=== PATIENT | female | born 1945 | race Caucasian/White ===

== ENCOUNTER 2016-10-03 18:30 | Inpatient (IN) | payer MEDICARE, OTHER ==
[~2016-10-03] VITALS: Ht 157.5 cm; Wt 77.0 kg
[2016-10-03 18:30] VITALS: BP_SYST 176; BP_SYST 177; BP_SYST 194; BP_DIAS 78; BP_DIAS 80; BP_DIAS 83; RESP 16
[~2016-10-03 18:30] MED LIST: BACT800T5 PO; CITA20 PO; HYDR-3133 PO; PANT20 PO; PRAV20TA67 PO; TOPR50TA PO; ZYRT10TA12 PO
[2016-10-03 18:38] VITALS: BP 193/74; PULSE 65; RESP 20; O2SAT 99
[2016-10-03] MEDS ORDERED: MECLIZINE HCL 25 MG TAB PO ONE (19:00)
--- NOTE | 2016-10-03 19:17 | RADRPT ---
EXAM DATE/TIME: 10/03/2016 19:07 [facility] COMPARISON: No previous studies available for comparison. INDICATIONS : Dizziness. RADIATION DOSE: 34.55 CTDIvol (mGy) MEDICAL HISTORY : Hypertension. Cardiovascular disease Gastroesophageal reflux disease. SURGICAL HISTORY : None. ENCOUNTER: Initial ACUITY: 1 day PAIN SCALE: 0/10 LOCATION: cranial TECHNIQUE: Multiple contiguous axial images were obtained of the head. Using automated exposure control and adj ustment of the mA and/or kV according to patient size, radiation dose was kept as low as reasonably a chievable to obtain optimal diagnostic quality images. FINDINGS: CEREBRUM: The ventricles are normal for age. No evidence of midline shift, mass lesion, hemorrhage or acute in farction. No extra-axial fluid collections are seen. POSTERIOR FOSSA: The cerebellum and brainstem are intact. The 4th ventricle is midline. The cerebellopontine angle i s unremarkable. EXTRACRANIAL: The visualized portion of the orbits is intact. SKULL: The calvaria is intact. No evidence of skull fracture. CONCLUSION: No acute disease. Eliseo Flood MD FACR on October 03, 2016 at 19:15 Board Certified Radiologist. This report was verified electronically.
--- NOTE | 2016-10-03 19:42 | PD ---
HPI Chief Complaint: Dizziness Time Seen by Provider: 19:35 Travel History International Travel<30 days: No Contact w/Intl Traveler<30days: No Traveled to known affect area: No History of Present Illness HPI 71-year-old female that presents to the ED for evaluation of dizziness. Patient reports that she's been feeling dizzy since yesterday. Per patient earlier this week she was seen by her doctor and given a prescription for prednisone and albuterol inhaler for which she has taken for an asthma exacerbation per patient. She is unsure if she is ever taken the prednisone before but she has had the albuterol before. She states that she stopped taking the medications on Tuesday as she felt somewhat dizzy and she was scared of the side effects. Per patient she developed a severe episode of dizziness yesterday. Per patient she was doing is sitting reading a book and she felt very dizzy. Per patient the room was spinning. She denies any headache or lightheadedness. She denies any chest pain or shortness of breath. No numbness , tilling, weakness. No abdominal pain. No urinary or bowel movement issues. Per patient the pain she tells me is that she has a cough and runny nose which she's had since Tuesday but the patient seems to be improving. Per patient and the dizziness from yesterday did improve after she laid down. Per patient her checked her blood pressure any was high but he came down on its own within 2 hours. Per patient she didn't think much of it and she again had another episode or more slightly at night when she had to go urinate. Today she had a couple of episodes that were very small again when she was trying to ambulate in her house. She had a last one about an hour before coming which was more severe and closer in magnitude to the one that happened yesterday. Patient denies any nausea or vomiting. No blurry vision. Per patient she feels like the room spinning. She denies any back or neck pain. She has allergies to aspirin, erythromycin and penicillin. Denies any diarrhea. No history of heart disease or CVA on herself. 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) Cancer: No Cardiovascular Problems: Yes High Cholesterol: Yes Chest Pain: No Congestive Heart Failure: No Diminished Hearing: No Diverticulitis: Yes Endocrine: No Gastrointestinal Disorders: Yes (gi bleed) GERD: Yes Genitourinary: No Headaches: Yes Hiatal Hernia: Yes Hypertension: Yes Immune Disorder: No Implanted Vascular Access Dvce: Yes Kidney Stones: No Musculoskeletal: Yes Neurologic: No Psychiatric: No Reproductive: No Respiratory: No Immunizations Current: Yes Ulcer: No Dilation and Curettage (D&C): Yes Past Surgical History Abdominal Surgery: Yes (bowel resection ) Body Medical Devices: [employer] FOR ENDOSCOPY - 1 WEEK AGO Cardiac Surgery: No Ear Surgery: No Endocrine Surgery: No Eye Surgery: No Genitourinary Surgery: No Gynecologic Surgery: No Neurologic Surgery: No Oral Surgery: No Thoracic Surgery: No Other Surgery: Yes (CARPEL TUNNEL) Social History Alcohol Use: Yes (RARELY) Tobacco Use: No Substance Use: No Allergies-Medications (Allergen,Severity, Reaction): Coded Allergies: Prednisone (Verified Allergy, Severe, 10/26/14) Aspirin (Verified Allergy, Unknown, 10/26/14) Erythromycin (Verified Allergy, Unknown, 10/26/14) Reported Meds & Prescriptions Reported Meds & Active Scripts Active Bactrim DS (Sulfamethoxazole-Trimethoprim DS) 1 Tab Tab 1 Tab PO BID Reported Protonix (Pantoprazole Sodium) 20 Mg Tabdr 20 Mg PO BIDPC Pravachol (Pravastatin Sodium) 20 Mg Tab 20 Mg PO HS Zyrtec (Cetirizine HCl) 10 Mg Tab 10 Mg PO DAILYPRN Celexa 20 Mg Tab (Citalopram Hydrobromide) 20 Mg Tab 20 Mg PO DAILY Toprol Xl (Metoprolol Succinate) 50 Mg Tabcr 50 Mg PO DAILY Hydroxyzine Hcl (Hydroxyzine HCl) 25 Mg Tab 25 Mg PO QIDPRN Review of Systems Except as stated in HPI: all other systems reviewed are Neg Physical Exam Narrative GENERAL: SKIN: Warm and dry. HEAD: Atraumatic. Normocephalic. EYES: Pupils equal and round 4 mm reactive to light and accommodation. No scleral icterus. No injection or drainage. ENT: No nasal bleeding or discharge. Mucous membranes pink and moist. The tongue is midline. No Uvula deviation. NECK: Trachea midline. No JVD. CARDIOVASCULAR: Regular rate and rhythm. No murmurs, S3, S4. RESPIRATORY: No accessory muscle use. Clear to auscultation. Breath sounds equal bilaterally. GASTROINTESTINAL: Abdomen soft, non-tender, nondistended. Hepatic and splenic margins not palpable. MUSCULOSKELETAL: Extremities without clubbing, cyanosis, or edema. No obvious deformities. Full range of motion of the upper and lower extremities bilaterally. 2+ pulses bilaterally. NEUROLOGICAL: Awake and alert. No obvious cranial nerve deficits. Motor grossly within normal limits. Five out of 5 muscle strength in the arms and legs. Normal speech. PSYCHIATRIC: Appropriate mood and affect; insight and judgment normal. Data Data Last Documented VS Vital Signs Date Time Temp Pulse Resp B/P Pulse Ox O2 Delivery O2 Flow Rate FiO2 10/03/16 21:00 66 15 142/68 98 Room Air Orders Electrocardiogram (10/03/16 18:59) Basic Metabolic Panel (Bmp) (10/03/16 18:59) Complete Blood Count With Diff (10/03/16 18:59) Magnesium (Mg) (10/03/16 18:59) Ckmb (Isoenzyme) Profile (10/03/16 18:59) Troponin I (10/03/16 18:59) Act Partial Throm Time (Ptt) (10/03/16 18:59) Prothrombin Time / Inr (Pt) (10/03/16 18:59) Urinalysis - C+S If Indicated (10/03/16 18:59) Chest, Single Ap (10/03/16 18:59) Ct Brain W/O Iv Contrast(Rout) (10/03/16 18:59) Ecg Monitoring (10/03/16 18:59) Iv Access Insert/Monitor (10/03/16 18:59) Oximetry (10/03/16 18:59) Meclizine (Antivert) (10/03/16 19:00) Orthostatic Vital Signs (10/03/16 18:59) Admit Order (Ed Use Only) (10/03/16 21:27) Labs Laboratory Tests Test 10/03/16 10/03/16 18:40 19:55 White Blood Count 8.3 TH/MM3 Red Blood Count 4.77 MIL/MM3 Hemoglobin 13.4 GM/DL Hematocrit 39.8 % Mean Corpuscular Volume 83.5 FL Mean Corpuscular Hemoglobin 28.2 PG Mean Corpuscular Hemoglobin 33.7 % Concent Red Cell Distribution Width 13.5 % Platelet Count 364 TH/MM3 Mean Platelet Volume 8.1 FL Neutrophils (%) (Auto) 61.8 % Lymphocytes (%) (Auto) 27.4 % Monocytes (%) (Auto) 7.5 % Eosinophils (%) (Auto) 2.5 % Basophils (%) (Auto) 0.8 % Neutrophils # (Auto) 5.1 TH/MM3 Lymphocytes # (Auto) 2.3 TH/MM3 Monocytes # (Auto) 0.6 TH/MM3 Eosinophils # (Auto) 0.2 TH/MM3 Basophils # (Auto) 0.1 TH/MM3 CBC Comment DIFF FINAL Differential Comment Prothrombin Time 10.7 SEC Prothromb Time International 1.0 RATIO Ratio Activated Partial 24.4 SEC Thromboplast Time Sodium Level 139 MEQ/L Potassium Level 3.9 MEQ/L Chloride Level 102 MEQ/L Carbon Dioxide Level 27.7 MEQ/L Anion Gap 9 MEQ/L Blood Urea Nitrogen 17 MG/DL Creatinine 1.07 MG/DL Estimat Glomerular Filtration 51 ML/MIN Rate Random Glucose 159 MG/DL Calcium Level 8.6 MG/DL Magnesium Level 2.3 MG/DL Total Creatine Kinase 49 U/L Troponin I 0.02 NG/ML Urine Color YELLOW Urine Turbidity CLEAR Urine pH 6.5 Urine Specific [place] 1.015 Urine Protein NEG mg/dL Urine Glucose (UA) NEG mg/dL Urine Ketones NEG mg/dL Urine Occult Blood NEG Urine Nitrite NEG Urine Bilirubin NEG Urine Urobilinogen LESS THAN 2.0 MG/DL Urine Leukocyte Esterase NEG Urine RBC 1 /hpf Urine WBC 1 /hpf Urine Squamous Epithelial 2 /hpf Cells Urine Bacteria RARE /hpf Urine Hyaline Casts 1 /lpf Urine Mucus FEW /lpf Microscopic Urinalysis Comment CULT NOT INDICATED MDM Medical Decision Making Medical Screen Exam Complete: Yes Emergency Medical Condition: Yes Medical Record Reviewed: Yes Interpretation(s) EKG shows sinus rhythm with no sign of ischemia or arrhythmia rhythm by me and attending. CBC & BMP Diagram 10/03/16 18:[address] 10/03/161858 Signed Impressions: Service Date/Time: Monday, October 03, 2016 19:07 - CONCLUSION: No acute disease. Eliseo Flood MD FACR Chest X-Ray 10/03/[id number] Signed Impressions: Service Date/Time: Monday, October 03, 2016 19:13 - CONCLUSION: No acute disease. Eliseo Flood MD FACR Troponin and CK-MB negative. Differential Diagnosis Dizziness versus near syncope versus syncope versus CVA versus ACS versus Electrolyte abnormality versus orthostatic hypotension Narrative Course 71-year-old female that presents to the ED for evaluation of dizziness. Patient was properly examined and was found to have signs and symptoms consistent appears to be dizziness. Labs and imaging were ordered. Patient agrees first to proceed. Patient was given meclizine to see this will help with her symptoms. Unclear of the etiology of the symptoms that could be secondary to the prednisone that she is very hypertensive on exam. Labs and imaging showed no sign of acute disease. Patient has never had episodes like this before. Case was discussed in my attending Dr. Turner who evaluated the patient with me and agrees the patient requires further testing to rule out TIA. Patient agrees for us to proceed with admission for FOR further testing. [facility] Hospitalist was contacted and Hubert RIVERA agrees to admission. Diagnosis Primary Impression: Transient neurological symptoms Additional Impression: Dizziness Admitting Information Admitting Physician Requests: Observation Diego Sadler Oct 03, 2016 19:42 Diego Sadler Oct 03, 2016 19:42
--- NOTE | 2016-10-03 19:48 | RADRPT ---
EXAM DATE/TIME: 10/03/2016 19:13 [facility] COMPARISON: No previous studies available for comparison. INDICATIONS : Dizzy with high blood pressure. MEDICAL HISTORY : Asthma. SURGICAL HISTORY : None. ENCOUNTER: Initial ACUITY: 1 day PAIN SCORE: 0/10 LOCATION: Bilateral chest FINDINGS: A single view of the chest demonstrates the lungs to be symmetrically aerated without evidence of mas s, infiltrate or effusion. The cardiomediastinal contours are unremarkable. Osseous structures are intact. CONCLUSION: No acute disease. Eliseo Flood MD FACR on October 03, 2016 at 19:47 Board Certified Radiologist. This report was verified electronically.
[2016-10-03 20:12] LABS: AUTOMATED NEUTROPHIL # 5.1 TH/MM3 (1.8-7.7); BASOPHIL # 0.1 TH/MM3 (0-0.2); BASOPHIL % 0.8 % (0.0-2.0); EOSINOPHIL # 0.2 TH/MM3 (0-0.4); EOSINOPHIL % 2.5 % (0.0-4.0); HEMATOCRIT 39.8 % (35.0-46.0); HEMO FLAGS DIFF FINAL; LYMPH % 27.4 % (9.0-44.0); LYMPHOCYTE # 2.3 TH/MM3 (1.0-4.8); MEAN CELL VOLUME 83.5 FL (80.0-100.0); MEAN CORPUSCULAR HEMOGLOBIN 28.2 PG (27.0-34.0); MEAN CORPUSCULAR HGB CONC 33.7 % (32.0-36.0); MONO % 7.5 % (0.0-8.0); NEUT % 61.8 % (16.0-70.0); PLATELET COUNT 364 TH/MM3 (150-450); RED BLOOD COUNT 4.77 MIL/MM3 (4.00-5.30); RED CELL DISTRIBUTION WIDTH 13.5 % (11.6-17.2); WHITE BLOOD COUNT 8.3 TH/MM3 (4.0-11.0)
[2016-10-03 20:15] VITALS: BP 161/75; PULSE 65; RESP 15; O2SAT 98
[2016-10-03 20:21] LABS: APTT (PATIENT) 24.4 SEC (24.3-30.1); PROTHROMBIN TIME - PATIENT 10.7 SEC (9.8-11.6)
[2016-10-03 20:27] LABS: BACTERIA, URINE RARE /hpf; BLOOD, URINE NEG (NEG); COMMENT (UR) CULT NOT INDICATED; CULTURE IF INDICATED CULT NOT INDICATED; GLUCOSE,URINE NEG (NEG); HYALINE CAST, URINE 1 /lpf (RARE); KETONE, URINE NEG (NEG); MUCUS URINE FEW /lpf (OCC); NITRITE,URINE NEG (NEG); PH, URINE 6.5 (5.0-8.5); SQUAMOUS EPITHELIAL CELL URINE 2 /hpf (0-5); URINE COLOR YELLOW (YELLW/STRAW)
[2016-10-03 20:49] LABS: BICARBONATE 27.7 MEQ/L (21.0-32.0); MAGNESIUM 2.3 MG/DL (1.5-2.5); POTASSIUM 3.9 MEQ/L (3.5-5.1)
[2016-10-03 21:00] VITALS: BP 142/68; PULSE 66; RESP 15; O2SAT 98
[2016-10-03] MEDS ORDERED: SODIUM CHLORIDE 0.9% FLUSH 5 ML FLUSH FLUSH PRN (22:00)
[2016-10-03] MEDS ORDERED: NALOXONE HCL 0.4 MG/ML AMP IV PRN (22:00)
[2016-10-03] MEDS ORDERED: ENALAPRILAT 1.25 MG/ML VIAL IV PRN (22:00)
[2016-10-03] MEDS ORDERED: ACETAMINOPHEN 325 MG TAB PO PRN (22:00)
[2016-10-03] MEDS ORDERED: OLOP.1%O EACH EYE (22:17)
[2016-10-03] MEDS ORDERED: VENTAER INH (22:17)
[2016-10-03] MEDS ORDERED: CALC1TAB30 PO (22:17)
[2016-10-03] MEDS ORDERED: METO50TA PO (22:17)
[2016-10-03] MEDS ORDERED: GUAI200T (22:17)
[2016-10-03] MEDS ORDERED: ESTR1 PO (22:17)
[2016-10-03] MEDS ORDERED: STOO100C (22:17)
[2016-10-03] MEDS ORDERED: CITA10TA4 PO (22:17)
[2016-10-03] MEDS ORDERED: HYDR-3133 PO (22:17)
[2016-10-03] MEDS ORDERED: FLUC10SU PO (22:17)
[2016-10-03] MEDS ORDERED: TYLE325T PO (22:17)
[2016-10-03] MEDS ORDERED: ZYRT10CA PO (22:17)
[2016-10-03] MEDS ORDERED: PRAV10TA PO (22:17)
[2016-10-03] MEDS ORDERED: SYMB160A INH (22:17)
[2016-10-03] MEDS ORDERED: PANT20TA2 PO (22:17)
[2016-10-03] MEDS: SODIUM CHLOR 0.9% 1000 ML INJ 1,000 ML IV SCH (22:26)
[2016-10-03 22:50] VITALS: BP 130/69; PULSE 65; RESP 15; O2SAT 98
--- NOTE | 2016-10-03 23:00 | RADRPT ---
EXAM DATE/TIME: 10/03/2016 22:11 [facility] COMPARISON: No previous studies available for comparison. INDICATIONS : Cerebrovascular accident. MEDICAL HISTORY : Hypercholesterolemia. Diverticulitis. Gastroesophageal reflux disease. Hypertension. Asthma. Gastroin testinal bleed. Hiatal hernia. Arthritis. Anxiety. SURGICAL HISTORY : Bowel resection. Carpal tunnel surgery. Dilation and Curettage. ENCOUNTER: Initial ACUITY: 1 day PAIN SCORE: 0/10 LOCATION: Bilateral neck PEAK SYSTOLIC VELOCITIES (cm/sec): ICA/CCA RATIO: Right: 1.4 Left: 1.9 ICA: Right: 97 Left: 107 CCA: Right: 68 Left: 57 ECA: Right: 98 Left: 66 VERTEBRAL: Right: 56 antegrade Left: 72 antegrade Elevated flow velocities and ICA/CCA ratios have been found to correlate with increased degrees of vessel stenosis, calculated as percentage of diameter relative to a normal segment of distal ICA/CCA FINDINGS: RIGHT CAROTID: No significant stenosis is visualized. The waveforms are within normal limits. LEFT CAROTID: No significant stenosis is visualized. The waveforms are within normal limits. VERTEBRAL ARTERIES: Antegrade flow is seen in both vertebral arteries. MISCELLANEOUS: None. CONCLUSION: No evidence of flow-limiting carotid stenosis. Hubert Pat MD on October 03, 2016 at 22:57 Board Certified Radiologist. This report was verified electronically.
[2016-10-04] VITALS (9 sets, daily range): BP systolic 123–163; BP diastolic 55–72; PULSE 64–69; RESP 18–21; TEMP 97.2–98.8; O2SAT 95–97
[2016-10-04 06:52] LABS: BICARBONATE 27.5 MEQ/L (21.0-32.0); POTASSIUM 4.3 MEQ/L (3.5-5.1)
[2016-10-04] MEDS: SODIUM CHLORIDE 0.9% FLUSH 5 ML FLUSH FLUSH SCH ×2 (07:44→20:36)
[2016-10-04] MEDS: SODIUM CHLOR 0.9% 1000 ML INJ 1,000 ML IV SCH ×2 (07:45→17:18)
[2016-10-04] MEDS ORDERED: RESP: ALBUTEROL 2.5 MG/IPRATROPIUM 0.5 MG NEB (PRN) NEB (08:15)
--- NOTE | 2016-10-04 08:29 | HHI.HP ---
HPI Service [facility] Primary Care Physician Blayne See, DO Admission Diagnosis dizziness, r/o CVA Diagnoses: Chief Complaint: dizziness (Katia Pendleton) Travel History International Travel<30 Days: No Contact w/Intl Traveler <30 Da: No Traveled to Known Affected Are: No (Katia Pendleton) History of Present Illness This is a 71-year-old female with PMHx of elevated heart rate, GI bleed sec. AVMs, asthma. Pt. presented to ED for evaluation of dizziness. Patient reported that she's been feeling dizzy since . States dizziness came on suddenly while she was sitting, worst with moving head, felt she was going to fall down. Had mild nausea. checked BP and it was 180s. Pt. lay down and symptoms improved. Yesterday, she had another episode, more severe felt she "was dying". Was very nauseous, no syncope, no cp, no sob, no palpitations. Her BP was checked and it was again elevated in the 200s. States she takes Lopressor for elevated heart rate. Pt states hat prior to episodes of dizziness, she had been treated for a possible upper respiratory infection and asthma exacerbation. Was put on Albuterol INH and Prednisone. and pt. are concerned that steroids brought on episode, she is on a tapering dose pack but she stopped taking on Tuesday. Has a mild cough, and some wheezing. Pt. denies any history of CVA, no vertigo, no CAD, no diabetes. In the ED, pt. was evaluated, laboratory work up remarkable for slight dehydration, with elevated creatinine. Troponin is mildly elevated, but not trending upwards. EKG negative. CT of head negative. CXR no infiltrates. Pt. was given Meclizine, only has mild dizziness at this time. No paresthesias, no slurring of speech, no focal symptoms. Has a mild headache, no vision changes. Pt's at [facility], again very concerned and adamant that symptoms are likely due to steroids. Pt. admitted for further evaluation and treatment. (Katia Pendleton) Review of Systems Constitutional: COMPLAINS OF: Dizziness, DENIES: Diaphoretic episodes, Fatigue , Fever, Weight gain, Weight loss, Chills, Change in appetite, Night Sweats Endocrine: DENIES: Abnorml menstrual pattern, Heat/cold intolerance, Polydipsia , Polyuria, Polyphagia Eyes: DENIES: Blurred vision, Diplopia, Eye inflammation, Eye pain, Vision loss , Photosensitivity, Double Vision Ears, nose, mouth, throat: DENIES: Tinnitus, Hearing loss, Vertigo, Nasal discharge, Oral lesions, Throat pain, Hoarseness, Ear Pain, Running Nose, Epistaxis, Sinus Pain, Toothache, Odynophagia Respiratory: COMPLAINS OF: Cough, Wheezing, DENIES: Apneas, Snoring, Hemoptysis, Sputum production, Shortness of breath Cardiovascular: DENIES: Chest pain, Palpitations, Syncope, Dyspnea on Exertion , PND, Lower Extremity Edema, Orthopnea, Claudication Gastrointestinal: COMPLAINS OF: Nausea, DENIES: Abdominal pain, Black stools, Bloody stools, Constipation, Diarrhea, Vomiting, Difficulty Swallowing, Anorexia Genitourinary: DENIES: Abnormal vaginal bleeding, Dysmenorrhea, Dyspareunia, Sexual dysfunction, Urinary frequency, Urinary incontinence, Urgency, Hematuria , Dysuria, Nocturia, Vaginal discharge Musculoskeletal: DENIES: Joint pain, Muscle aches, Stiffness, Joint Swelling, Back pain, Neck pain Integumentary: DENIES: Abnormal pigmentation, Pruritus, Rash, Nail changes, Breast masses, Breast skin changes, Nipple discharge Immunologic/allergic: DENIES: Eczema, Urticaria Neurologic: DENIES: Abnormal gait, Headache, Localized weakness, Paresthesias, Seizures, Speech Problems, Tremor, Poor Balance Psychiatric: DENIES: Anxiety, Confusion, Mood changes, Depression, Hallucinations, Agitation, Suicidal Ideation, Homicidal Ideation, Delusions ( Katia Pendleton) Past Family Social History Past Medical History Elevated heart rate, takes BB AVM GI bleed GERD Asthma Hiatal hernia Arthritis Past Surgical History Bowel resection sec. AVMs 4 years ago at [facility] EGD/Colonoscopy CTS Reported Medications Reported Meds & Active Scripts Active Reported Guaifenesin 200 Mg Tab Estrace (Estradiol) 1 Mg Tab 1 Mg PO DAILY Stool Softener (Docusate Sodium) 100 Mg Cap Hydroxyzine HCl 25 Mg Tab 25 Mg PO QID Patanol Opth Drops (Olopatadine HCl) 0.1 % Drops 1 Drop EACH EYE BID Fluconazole Liq (Fluconazole) 10 Mg/Ml Susp 50 Mg PO DAILY Ventolin Hfa 18 GM Inh (Albuterol Sulfate) 90 Mcg/Act Aer 1 Puff INH Q4H PRN Symbicort Inh (Budesonide/Formoterol Fumarate) 160-4.5 Mcg/Act Aero 1 Puff INH Q12HR Pravastatin 10 Mg Tab 10 Mg PO DAILY Pantoprazole (Pantoprazole Sodium) 20 Mg Tab 20 Mg PO DAILY Metoprolol Tartrate 50 Mg Tab 50 Mg PO BID Citalopram (Citalopram Hydrobromide) 10 Mg Tab 10 Mg PO DAILY Calcium 600 + D (Calcium Carbonate-Cholecalciferol) 600-200 Mg-Unit Tab 1 Tab PO BID Zyrtec Allergy (Cetirizine HCl) 10 Mg Cap 10 Mg PO DAILY Tylenol (Acetaminophen) 325 Mg Tab 325 Mg PO ONCE (Katia Pendleton) Allergies: Coded Allergies: Prednisone (Verified Allergy, Severe, 10/26/14) Aspirin (Verified Allergy, Unknown, 10/26/14) Erythromycin (Verified Allergy, Unknown, 10/26/14) Active Ordered Medications Inpatient Medications Acetaminophen (Tylenol) 650 mg Q4H PRN PO TEMP > 100.4; Start 10/03/16 at 22:00 Albuterol/ Ipratropium (Duoneb Neb) 1 ampule QID NEB PRN NEB WHEEZING; Start at 08:15 Enalaprilat (Vasotec Inj) 1.25 mg Q4H PRN IV For SBP > 220 or DBP > 120; Start 10/03/16 at 22:00 IV Flush (NS Flush) 2 ml BID FLUSH ; Start 10/04/16 at 09:00 Meclizine HCl 50 mg 50 mg ONCE ONCE PO Last administered on 10/03/16t 19:40; Start 10/03/16 at 19:00; Stop 10/03/16 at 19:01; Status DC Naloxone HCl (Narcan Inj) 0.4 mg UNSCH PRN IV SEE LABEL COMMENTS; Start at 22:00 Ondansetron HCl (Zofran Inj) 4 mg Q6H PRN IVP NAUSEA OR VOMITING; Start at 22:00 Sodium Chloride (NS 1000 ml Inj) 1,000 ml @ 100 mls/hr Q10H IV Last administered on 10/04/16 07:45; Start 10/03/16 at 22:00 Family History Mother from breast cancer Father from lung cancer Social History , has grown children. Quit smoking many years ago, smoked when she was in college. Rare ETOH use, no substance abuse. (Katia Pendleton) Physical Exam Vital Signs Vital Signs Date Time Temp Pulse Resp B/P Pulse Ox O2 Delivery O2 Flow Rate FiO2 10/04/16 07:47 97.7 64 18 134/60 96 10/04/16 07:30 95 21 10/04/16 04:50 97.2 69 19 123/55 97 10/04/16 04:44 97 21 10/04/16 00:10 68 10/04/16 00:03 98.7 69 21 163/70 97 10/03/16 22:50 65 15 130/69 98 Room Air 10/03/16 21:00 66 15 142/68 98 Room Air 10/03/16 20:15 65 15 161/75 98 10/03/16 18:42 63 20 98 Room Air 10/03/16 18:38 65 20 193/74 99 10/03/16 18:30 66 16 177/78 70 16 176/80 67 16 194/83 Physical Exam GENERAL: This is a well-nourished, well-developed patient, in no apparent distress. SKIN: No rashes, ecchymoses or lesions. Cool and dry. HEAD: Atraumatic. Normocephalic. No temporal or scalp tenderness. EYES: Pupils equal round and reactive. Extraocular motions intact. No scleral icterus. No injection or drainage. ENT: Nose without bleeding, purulent drainage or septal hematoma. Throat without erythema, tonsillar hypertrophy or exudate. Uvula midline. Airway patent. NECK: Trachea midline. No JVD or lymphadenopathy. Supple, nontender, no meningeal signs. CARDIOVASCULAR: Regular rate and rhythm without murmurs, gallops, or rubs. RESPIRATORY: Clear to auscultation. Breath sounds equal bilaterally. No wheezes , rales, or rhonchi. GASTROINTESTINAL: Abdomen soft, non-tender, nondistended. No hepato-splenomegaly , or palpable masses. No guarding. MUSCULOSKELETAL: Extremities without clubbing, cyanosis, or edema. No joint tenderness, effusion, or edema noted. No calf tenderness. Negative Homans sign bilaterally. NEUROLOGICAL: Awake and alert. Cranial nerves II through XII intact. Motor and sensory grossly within normal limits. Five out of 5 muscle strength in all muscle groups. Normal speech. Laboratory Laboratory Tests Test 10/03/16 10/03/16 10/04/16 10/04/16 18:40 19:55 01:53 05:48 White Blood Count 8.3 Red Blood Count 4.77 Hemoglobin 13.4 Hematocrit 39.8 Mean Corpuscular Volume 83.5 Mean Corpuscular Hemoglobin 28.2 Mean Corpuscular Hemoglobin 33.7 Concent Red Cell Distribution Width 13.5 Platelet Count 364 Mean Platelet Volume 8.1 Neutrophils (%) (Auto) 61.8 Lymphocytes (%) (Auto) 27.4 Monocytes (%) (Auto) 7.5 Eosinophils (%) (Auto) 2.5 Basophils (%) (Auto) 0.8 Neutrophils # (Auto) 5.1 Lymphocytes # (Auto) 2.3 Monocytes # (Auto) 0.6 Eosinophils # (Auto) 0.2 Basophils # (Auto) 0.1 CBC Comment DIFF FINAL Differential Comment Prothrombin Time 10.7 Prothromb Time International 1.0 Ratio Activated Partial 24.4 Thromboplast Time Sodium Level 139 140 Potassium Level 3.9 4.3 Chloride Level 102 106 Carbon Dioxide Level 27.7 27.5 Anion Gap 9 7 Blood Urea Nitrogen 17 13 Creatinine 1.07 1.01 Estimat Glomerular Filtration 51 54 Rate Random Glucose 159 91 Calcium Level 8.6 8.9 Magnesium Level 2.3 Total Creatine Kinase 49 Troponin I 0.02 0.07 0.05 Urine Color YELLOW Urine Turbidity CLEAR Urine pH 6.5 Urine Specific [place] 1.015 Urine Protein NEG Urine Glucose (UA) NEG Urine Ketones NEG Urine Occult Blood NEG Urine Nitrite NEG Urine Bilirubin NEG Urine Urobilinogen LESS THAN 2.0 Urine Leukocyte Esterase NEG Urine RBC 1 Urine WBC 1 Urine Squamous Epithelial 2 Cells Urine Bacteria RARE Urine Hyaline Casts 1 Urine Mucus FEW Microscopic Urinalysis Comment CULT NOT INDICATED (Katia Pendleton) Result Diagram: 10/03/16183910/04/16 0548 Imaging Last Impressions Head CT 10/03/161858 Signed Impressions: Service Date/Time: Monday, October 03, 2016 19:07 - CONCLUSION: No acute disease. Eliseo Flood MD FACR Chest X-Ray 10/03/161858 Signed Impressions: Service Date/Time: Monday, October 03, 2016 19:13 - CONCLUSION: No acute disease. Eliseo Flood MD FACR Carotid Artery Ultrasound 10/03/16 0000 Signed Impressions: Service Date/Time: Monday, October 03, 2016 22:11 - CONCLUSION: No evidence of flow-limiting carotid stenosis. Hubert Pat MD (Katia Pendleton) Assessment and Plan Problem List: (1) Dizziness (2) GERD (gastroesophageal reflux disease) (3) Asthma (4) Uncontrolled hypertension (5) Hx of arteriovenous malformation (AVM) (6) Elevated troponin (7) Vertigo (8) Hyperlipidemia Assessment and Plan Admit to Dr. Heredia 71 year old female admitted with acute episode of dizziness, nausea, no other symptoms. Possible cerebellar stroke, vs positional vertigo, uncontrolled HTN. -Continue IVF -Will check orthostatics q shift -Telemetry monitoring -cardiology and neurology consults in place -Brain MRI/MRA today -CUS, 2D echo today -PT for eval and treatment -OOB with assistance. -Antivert PRN Uncontrolled HTN, now improving -Improved without intervention, continue BB Elevated trop, no cp, elevated creat. nonspecific. -cardiology consult pending Asthma, with recent exacerbation, poss. bronchitis, improving. -No need for steroids -Duonebs PRN Hx GIB, GERD and AVMs, with bowel resection -continue with PPI -HH stable. Hyperlipidemia -continue with home meds Home medications reviewed, initiated as indicated. Plan of care discussed with attending, RN, and pt. Further management of the pt will be dependent on the hospital course. This patient was seen by myself and Dr. Heredia, this H/P is written on his behalf. (Katia Pendleton) Assessment and Plan Patient seen and examined as above Chart reviewed Meds reviewed Labs and radiological data reviewed Plan of care discussed with [facility] as above Discussed with patient (Yvonne Heredia MD) Problem Qualifiers (1) GERD (gastroesophageal reflux disease): Qualified Code: K21.9 - Gastroesophageal reflux disease without esophagitis (2) Asthma: Qualified Code: J45.20 - Mild intermittent asthma without complication (3) Hyperlipidemia: Qualified Code: E78.5 - Hyperlipidemia, unspecified hyperlipidemia type Katia Pendleton Oct 04, 2016 08:29 Yvonne Heredia MD Oct 04, 2016 16:43
[2016-10-04] MEDS ORDERED: MECLIZINE HCL 25 MG TAB PO PRN (09:00)
[2016-10-04] MEDS: OLOPATADINE HCL 0.1% OPHT SOLN 5 ML BTL EACH EYE SCH ×2 (09:00→20:37)
[2016-10-04] MEDS ORDERED: PILL SPLITTER OTHER PRN (09:15)
[2016-10-04] MEDS: METOPROLOL TARTRATE 50 MG TAB PO SCH ×2 (09:51→20:36)
[2016-10-04] MEDS: CITALOPRAM HYDROBROMIDE 20 MG TAB PO SCH (09:52)
[2016-10-04] MEDS: CETIRIZINE HCL 10 MG TAB PO SCH (09:52)
[2016-10-04] MEDS: PRAVASTATIN SOD 10 MG TAB PO SCH (09:53)
[2016-10-04] MEDS: PANTOPRAZOLE SOD 20 MG DELAYED RELEASE TAB PO SCH (09:53)
[2016-10-04] MEDS ORDERED: LORazepam 2 MG/ML VIAL IV PUSH ONE (10:30)
[2016-10-04] MEDS: BUDESONIDE-FORMOTEROL 160/4.5 MCG INHALER INH SCH ×2 (10:39→20:37)
[2016-10-04] MEDS ORDERED: LORazepam 2 MG/ML VIAL IM ONE (11:00)
--- NOTE | 2016-10-04 12:27 | RADRPT ---
EXAM DATE/TIME: 10/04/2016 11:57 [facility] COMPARISON: No previous studies available for comparison. INDICATIONS : Stroke. MEDICAL HISTORY : Hypertension. AVM. SURGICAL HISTORY : Colon resection. Carpal tunnel syndrome. ENCOUNTER: Subsequent ACUITY: 2 day PAIN SCORE: 0/10 LOCATION: cranial TECHNIQUE: Multiplanar, multisequence MRI of the brain was performed without contrast. FINDINGS: CEREBRUM: The ventricles are normal for age. No evidence of midline shift, mass lesion, hemorrhage or acute in farction. No extraaxial fluid collections are seen. The pituitary gland and suprasellar cistern are normal in configuration. WHITE MATTER: No significant signal abnormalities are seen in the white matter. POSTERIOR FOSSA: The cerebellum and brainstem are intact. The 4th ventricle is midline. The cerebellopontine angle is unremarkable. The cerebellar tonsils are normal in position. DIFFUSION IMAGING: No focal areas of restricted diffusion are seen. No evidence of acute infarction. EXTRACRANIAL: The visualized portions of the orbits and paranasal sinuses are unremarkable. CONCLUSION: Negative MRI of the brain. I don't see evidence for an acute ischemic event.. Eliseo Flood MD FACR on October 04, 2016 at 12:25 Board Certified Radiologist. This report was verified electronically.
--- NOTE | 2016-10-04 12:54 | RADRPT ---
EXAM DATE/TIME: 10/04/2016 11:57 [facility] COMPARISON: No previous studies available for comparison. INDICATIONS : Stroke. MEDICAL HISTORY : Hypertension. AVM. SURGICAL HISTORY : Colon resection. Carpal tunnel syndrome. ENCOUNTER: Subsequent ACUITY: 2 day PAIN SCORE: 0/10 LOCATION: cranial Please note a normal MRA of the brain does not entirely exclude the possibility of a small aneurysm, nor the possibility of distal intracranial vessel disease. TECHNIQUE: 3D time of flight MRA was performed. Source images, multiplanar STS MIP, and 3D volume MIP reconstru ctions were reviewed. FINDINGS: There is excellent visualization of the major intracranial arteries out to the second-order branch ve ssels. There is no evidence for aneurysm, vessel truncation or stenosis, and no evidence for vascula r malformation. CONCLUSION: Negative MRA of the brain. Eliseo Flood MD FACR on October 04, 2016 at 12:52 Board Certified Radiologist. This report was verified electronically.
--- NOTE | 2016-10-04 13:07 | MB ---
cc: AFSHAN MORA DATE OF CONSULTATION: 10/04/2016 DATE OF : 1945 REASON FOR CONSULTATION Vertigo, dizziness. HISTORY OF PRESENT ILLNESS 71-year-old female with a past medical history significant for recent upper respiratory infection, asthma exacerbation, hypertension and hyperlipidemia that presented to the emergency department yesterday for evaluation of dizziness and vertigo. The patient reports feeling the room spinning around since yesterday. She reports recent symptoms of upper respiratory infection, having a cough and a runny nose since Tuesday. She saw her primary care physician this week who started her on prednisone and albuterol inhaler because of asthma exacerbation. She denies chest pain, palpitations, shortness of breath, PND, leg edema and chest trauma. EKG was unremarkable as well as vital signs. Cardiology has been consulted for evaluation of dizziness and mildly elevated troponin. REVIEW OF SYSTEMS Negative except for what is mentioned in the HPI. PAST MEDICAL HISTORY 1. Hyperlipidemia. 2. Hypertension. 3. Asthma. 4. AVMs in the colon. 5. Questionable AVMs in the brain as well. PAST SURGICAL HISTORY 1. surgery. 2. Endoscopy. 3. Bowel resection. SOCIAL HISTORY Social alcohol use. No tobacco. No illicit drug use. ALLERGIES 1. ASPIRIN. 2. ERYTHROMYCIN. Home medications: 1. Bactrim double strength. 2. Protonix. 3. Pravachol. 4. Zyrtec. 5. Celexa. 6. Toprol. 7. Hydroxyzine. PHYSICAL EXAMINATION VITAL SIGNS: Temperature 97.2, respiratory rate 18, pulse 64, blood pressure 134/60. O2 sat 96% on room air. GENERAL: She is awake, alert, oriented x3. She is lying in bed. She reports feeling the vertigo again, that the room is spinning. NECK: No JVD. No carotid bruits. HEART: Normal S1, S2. No murmurs, rubs or gallops. LUNGS: Clear to auscultation bilaterally. No wheezes, rhonchi or rales. ABDOMEN: Soft, nontender, nondistended. Positive bowel sounds. EXTREMITIES: No cyanosis or edema. LABORATORY DATA CBC: Hemoglobin 13, hematocrit 39, white count 8.3, platelet count 364. INR 1. Chemistries: Sodium 140, potassium 4.3, BUN 13, creatinine 1.01. Troponins 0.02, 0.07, 0.05. Urine unremarkable. IMAGING DATA Carotid ultrasound: No evidence of flow-limiting carotid stenosis. Head CT unremarkable. Chest x-ray unremarkable. EKG EKG: Normal sinus rhythm ASSESSMENT AND PLAN 71-year-old female with cardiac risk factors of hypertension and hyperlipidemia that presents with positional vertigo in the setting of a recent upper respiratory infection. No complaints of chest pain, shortness of breath, palpitations or cardiac complaints at all. She does have mildly elevated troponin's, however, in the setting of acute kidney injury. At this point I would continue treatment for her upper respiratory infection. Consult neurology for treatment of her vertigo. Consider doing an MRI given her history of brain aneurysms. She should follow-up with her primary byproducts maker , Dr. Green, upon discharge from the hospital. Thank you for the opportunity to take part in the care of this patient. Will sign off Afshan Mora MD PROCESS AUTOMATION ENGINEER/BT /9:52 AM /12:49 PM [facility]
[2016-10-04] MEDS: MECLIZINE HCL 25 MG TAB PO SCH ×2 (13:33→20:36)
--- NOTE | 2016-10-04 13:59 | MB ---
cc: HILDA HOOKS M.D. DATE OF CONSULTATION: 10/04/2016 REASON FOR CONSULTATION Rule out stroke. HISTORY OF PRESENT ILLNESS Ms. Ellison is a very nice 71-year-old woman who had an upper respiratory infection about a week ago and started on steroids. Last Tuesday while sitting at home suddenly developed vertigo with a feeling of the room spinning, somewhat positional in nature and has persisted to the present time. She denies any hearing loss, tinnitus, no focal weakness or numbness, slurred speech, etc. PAST MEDICAL HISTORY 1. She has history of bowel AVM status post bowel resection. 2. History of hyperlipidemia. 3. History of asthma. 4. Rapid heartbeat for which she takes metoprolol. MEDICATIONS Medications at home: 1. Guaifenesin. 2. Esterase. 3. Stool softener. 4. Hydroxyzine. 5. Patanol ophthalmic drops. 6. Fluconazole. 7. Ventolin. 8. Symbicort. 9. Pravastatin. 10. Pantoprazole. 11. Metoprolol for rapid heart rates. 12. Citalopram. 13. Calcium. 14. Zyrtec. 15. Tylenol. ALLERGIES PREDNISONE, ASPIRIN DUE TO THE GI BLEEDING FROM AVMs, ERYTHROMYCIN. NEUROLOGIC EXAMINATION VITAL SIGNS: Blood pressure is 134/60, pulse is 64, respiratory rate is 18, temperature 97 degrees. Higher cortical functions are normal. Cranial nerves are intact. The extraocular movements are normal. The pupils are equal and reactive. There is no facial asymmetry. On motor exam she has 5/5 strength of all groups in both upper and lower extremities. There is no drift. Fine motor skills normal. Reflexes symmetric. Cerebellar testing is normal with no dysmetria. IMAGING STUDIES CT scan of the brain is within normal limits. MRI is pending. Carotid ultrasound is normal. LABORATORY DATA The white count is 8300. Hemoglobin 13.4, hematocrit 39%, platelets 364,000, PT 10.7, INR 1, APTT 24.4. Sodium is 139, potassium 3.9, chloride 102, CO2 28, the BUN is 17, creatinine 1.07, GFR is 51, glucose 159, troponin 0.02, CPK 49. Urinalysis the pH is 6.5, specific gravity 1.015, WBC 1, RBC 1 is identified. EKG is normal sinus rhythm. IMPRESSION Vertigo. This may be a peripheral vertigo given the lack of any other findings on exam. RECOMMENDATIONS Will follow up on the MRI of the brain and MRA. Recommend a trial of meclizine. MD JAMES Long/JOZEF /10:27 AM /1:40 PM
--- NOTE | 2016-10-04 16:33 | EC ---
Study Study Date:10/04/2016 STUDY CONCLUSIONS SUMMARY LEFT VENTRICLE: The cavity size was normal. Wall thickness was normal. Systolic function was normal. The estimated ejection fraction was in the range of 55% to 60%. Wall motion was normal; there were no regional wall motion abnormalities. If LV function is below 40, please consider prescribing an ACEI or ARB or document rationale for non-use. PROCEDURE DATA STUDY STATUS: Elective. Procedure: Transthoracic echocardiography. Image quality was good. Scanning was performed from the parasternal, apical, and subcostal acoustic windows. Study completion: The patient tolerated the procedure well. Transthoracic echocardiography. M-mode, complete 2D, complete spectral Doppler, and color Doppler. Patient status: Inpatient. CARDIAC ANATOMY LEFT VENTRICLE: The cavity size was normal. Wall thickness was normal. Systolic function was normal. The estimated ejection fraction was in the range of 55% to 60%. Wall motion was normal; there were no regional wall motion abnormalities. AORTIC VALVE: Trileaflet; normal thickness leaflets. Doppler: Transvalvular velocity was within the normal range. There was no stenosis. No regurgitation. AORTA: Aortic root: The aortic root was normal in size. MITRAL VALVE: Structurally normal valve. Doppler: Transvalvular velocity was within the normal range. There was no evidence for stenosis. Trace regurgitation. LEFT ATRIUM: The atrium was normal in size. RIGHT VENTRICLE: The cavity size was normal. Wall thickness was normal. PULMONIC VALVE: Doppler: Transvalvular velocity was within the normal range. There was no evidence for stenosis. No regurgitation. TRICUSPID VALVE: Structurally normal valve. Doppler: Transvalvular velocity was within the normal range. Trace regurgitation. PULMONARY ARTERY: The main pulmonary artery was normal-sized. Systolic pressure was within the normal range. RIGHT ATRIUM: The atrium was normal in size. PERICARDIUM: There was no pericardial effusion. SYSTEMIC VEINS: Inferior vena cava: The vessel was normal in size. Prepared and signed by Venkat Townsend [id number]
[2016-10-04] MEDS ORDERED: SCOPOLAMINE 1.5 MG PATCH TD SCH (17:00)
--- NOTE | 2016-10-04 19:22 | EKG ---
Date Performed: 10/04/2016 Time Performed: 06:44:26 PTAGE: 71 years EKG: Sinus rhythm NORMAL ECG PREVIOUS TRACING : 10/03/2016 20.59 DOCTOR: Woodrow Pearce Interpretating Date/Time 10/04/2016 19:19:03
--- NOTE | 2016-10-04 19:30 | EKG ---
Date Performed: 10/03/2016 Time Performed: 20:59:27 PTAGE: 71 years EKG: Sinus rhythm NORMAL ECG PREVIOUS TRACING : 05/03/2012 13.47 DOCTOR: Woodrow Pearce Interpretating Date/Time 10/04/2016 19:27:21
[2016-10-04] MEDS: ONDANSETRON HCL 4 MG/2 ML VIAL IVP PRN (23:28)
[2016-10-05] VITALS (12 sets, daily range): BP systolic 129–150; BP diastolic 64–80; PULSE 60–87; RESP 18–20; TEMP 96.9–98.7; O2SAT 94–98
[2016-10-05] MEDS ORDERED: ALUMINUM/MAGNESIUM/SIMETH 30 ML CUP PO ONE (00:30)
[2016-10-05] MEDS ORDERED: PANTOPRAZOLE SODIUM 40 MG VIAL IV PUSH ONE (00:30)
[2016-10-05] MEDS: ONDANSETRON HCL 4 MG/2 ML VIAL IVP PRN ×2 (06:10→15:25)
[2016-10-05] MEDS: MECLIZINE HCL 25 MG TAB PO SCH ×3 (06:10→21:03)
[2016-10-05] MEDS: PROCHLORPERAZINE INJ 10 MG/2 ML VIAL IVS PRN ×2 (08:45→17:35)
--- NOTE | 2016-10-05 08:45 | HHI.PR ---
Subjective Subjective Remarks "I feel worst" has been nauseous since yesterday any minimal movement causes nausea and dizziness no abdominal pain had some heartburn yesterday, none today afraid to get out of bed no cp no sob no wheezing, minimal cough afebrile tele, SR, no ectopy BP 140s Review of Systems Constitutional Constitutional Remarks 12 point ROS completed, negative except as noted above Vitals/Results Vital Signs Vital Signs Date Time Temp Pulse Resp B/P Pulse Ox O2 Delivery O2 Flow Rate FiO2 10/05/16 08:10 96.9 60 18 145/69 98 10/05/16 05:21 98.0 77 18 149/80 95 10/05/16 00:43 97.7 87 18 147/77 97 10/04/16 21:31 98.8 65 18 145/67 97 10/04/16 11:40 98.0 68 18 154/72 95 10/04/16 09:30 66 CBC/BMP: 10/03/16 1840 10/04/16 0548 Microbiology Microbiology 10/04/16 Influenza Types A,B Antigen (MILES) - Final, Complete NEGATIVE FOR FLU A AND B ANTIGEN.... Physical Exam General General Appearance: Well Developed, Well Nourished, Anxious Eyes Eye Exam: Pupils Equal, Pupils Reactive Ears & Nose Ears & Nose Exam: Nasal Mucosa [place] Throat Throat Exam: Oral Mucosa [place] & Moist Neck Neck Exam: Neck Supple, Trachea Midline Pulmonary Resp Exam: Clear Bilaterally Cardiology CV Exam: Regular, Good Perfusion Gastrointestinal/Abdomen GI Exam: Soft, Non-Tender, Bowel Sounds Present, Non-Distended Musculoskeletal MS Exam: Joints Intact Integumentary Skin Exam: Warm, Dry Extremeties Extremities Exam: No Edema, Pedal Pulses Palpable Neurologic Neuro Exam: Alert, Awake, Oriented, Speech Clear, Moving All Extremities, No Focal Deficits Psychiatric Psych Exam: Appropriate Responses VTE Prophylaxis VTE Prophylaxis Device: SCDs PUD Prophylasis PUD Prophylaxis: Protonix Assessment/Plan Problem List: (1) Dizziness (2) Vertigo (3) GERD (gastroesophageal reflux disease) (4) Asthma (5) Elevated troponin (6) Uncontrolled hypertension (7) Hx of arteriovenous malformation (AVM) (8) Hyperlipidemia Assessment/Plan 71 year old female admitted with acute episode of dizziness, nausea, no other symptoms. Possible cerebellar stroke, vs positional vertigo, uncontrolled HTN. 10/05-continues with dizziness and nausea, unable to eat much. -Continue IVF -Orthos negative -Telemetry monitoring -Appreciate cardiology input. Recommends to neurology -Appreciate neuro input, likely vertigo, work up negative for cerebellar stroke -Brain MRI/MRA no acute findings -CUS no stenosis, 2D echo okay EF 50-60% -Continuw with PT for eval and treatment -OOB with assistance. -Antivert PRN -Scopolamine patch -Antiemetics PRN Uncontrolled HTN, now improving -Improved without intervention, continue BB Elevated trop, no cp, elevated creat. nonspecific. -cardiology input appreciated, no evidence of ACS. Asthma, with recent exacerbation, poss. bronchitis, improving. -No need for steroids -Duonebs PRN Hx GIB, GERD and AVMs, with bowel resection -continue with PPI -HH stable. Hyperlipidemia -continue with home meds SCDs for DVT prophylaxis PPI for GI prophylaxis Pt. remains symptomatic with vertigo, inc. N/V. Will change to inpatient admission. Pt. at risk for dehydration, kidney injury, electrolyte imbalance. Continue with IVF, PPI, antiemetics. Labs in am D/W RN D/W Dr. Christie D/W pt, at length This patient was seen by myself and Dr. Heredia, this note is written on his behalf. Problem Qualifiers (1) GERD (gastroesophageal reflux disease): Qualified Code: K21.9 - Gastroesophageal reflux disease without esophagitis (2) Asthma: Qualified Code: J45.20 - Mild intermittent asthma without complication (3) Hyperlipidemia: Qualified Code: E78.5 - Hyperlipidemia, unspecified hyperlipidemia type Katia Pendleton Oct 05, 2016 08:45
[2016-10-05] MEDS: SODIUM CHLORIDE 0.9% FLUSH 5 ML FLUSH FLUSH SCH ×2 (09:00→19:38)
[2016-10-05] MEDS: OLOPATADINE HCL 0.1% OPHT SOLN 5 ML BTL EACH EYE SCH ×2 (09:00→21:00)
[2016-10-05] MEDS: CETIRIZINE HCL 10 MG TAB PO SCH (09:56)
[2016-10-05] MEDS: CITALOPRAM HYDROBROMIDE 20 MG TAB PO SCH (09:56)
[2016-10-05] MEDS: METOPROLOL TARTRATE 50 MG TAB PO SCH ×2 (09:56→21:02)
[2016-10-05] MEDS: PRAVASTATIN SOD 10 MG TAB PO SCH (09:56)
[2016-10-05] MEDS: PANTOPRAZOLE SOD 20 MG DELAYED RELEASE TAB PO SCH ×2 (09:56→19:37)
[2016-10-05] MEDS: BUDESONIDE-FORMOTEROL 160/4.5 MCG INHALER INH SCH ×2 (10:00→21:03)
[2016-10-05] MEDS: SODIUM CHLOR 0.9% 1000 ML INJ 1,000 ML IV SCH ×2 (10:01→15:20)
[2016-10-05] MEDS ORDERED: ALPRAZolam 0.25 MG TAB PO ONE (19:15)
[2016-10-06] VITALS (7 sets, daily range): BP systolic 135–167; BP diastolic 64–77; PULSE 57–67; RESP 16–20; TEMP 98–98.8; O2SAT 93–96
[2016-10-06] MEDS: MECLIZINE HCL 25 MG TAB PO SCH ×3 (05:40→20:50)
[2016-10-06 08:54] LABS: HEMATOCRIT 36.5 % (35.0-46.0); MEAN CELL VOLUME 83.8 FL (80.0-100.0); MEAN CORPUSCULAR HEMOGLOBIN 27.6 PG (27.0-34.0); MEAN CORPUSCULAR HGB CONC 32.9 % (32.0-36.0); PLATELET COUNT 290 TH/MM3 (150-450); RED BLOOD COUNT 4.35 MIL/MM3 (4.00-5.30); RED CELL DISTRIBUTION WIDTH 13.6 % (11.6-17.2); REVIEW FLAG FINAL; WHITE BLOOD COUNT 6.3 TH/MM3 (4.0-11.0)
[2016-10-06] MEDS: SODIUM CHLORIDE 0.9% FLUSH 5 ML FLUSH FLUSH SCH ×2 (09:00→20:50)
[2016-10-06] MEDS: BUDESONIDE-FORMOTEROL 160/4.5 MCG INHALER INH SCH ×2 (09:00→20:42)
[2016-10-06] MEDS: OLOPATADINE HCL 0.1% OPHT SOLN 5 ML BTL EACH EYE SCH ×2 (09:00→20:42)
[2016-10-06] MEDS: PANTOPRAZOLE SOD 20 MG DELAYED RELEASE TAB PO SCH ×2 (09:16→20:50)
[2016-10-06] MEDS: CITALOPRAM HYDROBROMIDE 20 MG TAB PO SCH (09:16)
[2016-10-06] MEDS: CETIRIZINE HCL 10 MG TAB PO SCH (09:16)
[2016-10-06] MEDS: METOPROLOL TARTRATE 50 MG TAB PO SCH ×2 (09:16→20:50)
[2016-10-06] MEDS: PRAVASTATIN SOD 10 MG TAB PO SCH (09:16)
[2016-10-06] MEDS: SODIUM CHLOR 0.9% 1000 ML INJ 1,000 ML IV SCH ×3 (09:17→20:00)
[2016-10-06 09:25] LABS: BICARBONATE 26.3 MEQ/L (21.0-32.0); MAGNESIUM 2.3 MG/DL (1.5-2.5); POTASSIUM 3.8 MEQ/L (3.5-5.1)
--- NOTE | 2016-10-06 13:23 | HHI.FF ---
Face to Face Verification Diagnosis: (1) Dizziness (2) Vertigo (3) Uncontrolled hypertension (4) Hx of arteriovenous malformation (AVM) (5) Elevated troponin (6) Asthma (7) GERD (gastroesophageal reflux disease) (8) Hyperlipidemia Physical Therapy Order: Evaluate and Treat Home Health Nursing Order: Medical education Nursing assessment with vital signs I have seen patient Courtney Ellison on 10/06/16. My clinical findings support the need for the requested home health care services because: Deconditioned w/ increased weakness Limited ability to care for self Need for psychosocial assistance High risk of falls I certify that my clinical findings support that this patient is homebound because: Unsteady gait/balance Katia Pendleton [facility] Oct 06, 2016 13:23
--- NOTE | 2016-10-06 13:28 | HHI.PR ---
Subjective Subjective Remarks no more vomiting mild nausea has been able to eat 1/2 sandwich for lunch still very dizzy when getting out bed, at times she sees double very anxious about falling, doesn't want to get out bed afraid of discharge states she is not safe to go, very anxious about potential discharge worked with PT this morning doesn't like Xanax, made her "loopy" Review of Systems Constitutional Constitutional Remarks 12 point ROS completed, negative except as noted above Vitals/Results Intake & Output 10/05/16 10/05/16 10/06/16 15:00 23:00 07:00 Intake Total 120 ml 1136 ml 1286 ml Output Total 350 ml Balance -230 ml 1136 ml 1286 ml Intake Oral 120 ml 360 ml 480 ml IV Total 776 ml 806 ml Output Urine Total 350 ml # Voids 2 6 7 # Bowel Movements 0 0 0 Vital Signs Vital Signs Date Time Temp Pulse Resp B/P Pulse Ox O2 Delivery O2 Flow Rate FiO2 10/06/16 08:00 98.0 63 20 159/75 93 10/06/16 04:00 98.0 57 18 146/67 94 10/06/16 00:00 67 18 140/70 96 10/06/16 00:00 67 16 165/72 94 10/06/16 00:00 98.3 59 18 135/64 95 10/05/16 20:38 63 10/05/16 20:00 98.4 60 18 129/72 95 10/05/16 16:51 62 10/05/16 16:02 143/77 10/05/16 16:01 136/64 10/05/16 16:00 98.2 68 18 137/64 96 10/05/16 14:30 98.7 60 20 150/75 95 CBC/BMP: 10/06/16 0800 10/06/16 0800 Lab Results Laboratory Tests Test 10/06/16 08:00 White Blood Count 6.3 TH/MM3 Red Blood Count 4.35 MIL/MM3 Hemoglobin 12.0 GM/DL Hematocrit 36.5 % Mean Corpuscular Volume 83.8 FL Mean Corpuscular Hemoglobin 27.6 PG Mean Corpuscular Hemoglobin 32.9 % Concent Red Cell Distribution Width 13.6 % Platelet Count 290 TH/MM3 Mean Platelet Volume 7.7 FL Sodium Level 139 MEQ/L Potassium Level 3.8 MEQ/L Chloride Level 107 MEQ/L Carbon Dioxide Level 26.3 MEQ/L Anion Gap 6 MEQ/L Blood Urea Nitrogen 9 MG/DL Creatinine 0.90 MG/DL Estimat Glomerular Filtration 62 ML/MIN Rate Random Glucose 83 MG/DL Calcium Level 8.2 MG/DL Magnesium Level 2.3 MG/DL Physical Exam General General Appearance: Well Developed, Well Nourished, Anxious Eyes Eye Exam: Pupils Equal, Pupils Reactive Ears & Nose Ears & Nose Exam: Nasal Mucosa [place] Throat Throat Exam: Oral Mucosa [place] & Moist Neck Neck Exam: Neck Supple, Trachea Midline Pulmonary Resp Exam: Clear Bilaterally Cardiology CV Exam: Regular, Good Perfusion Gastrointestinal/Abdomen GI Exam: Soft, Non-Tender, Bowel Sounds Present, Non-Distended Musculoskeletal MS Exam: Joints Intact Integumentary Skin Exam: Warm, Dry Extremeties Extremities Exam: No Edema, Pedal Pulses Palpable Neurologic Neuro Exam: Alert, Awake, Oriented, Speech Clear, Moving All Extremities, No Focal Deficits Psychiatric Psych Exam: Appropriate Responses VTE Prophylaxis VTE Prophylaxis Device: SCDs PUD Prophylasis PUD Prophylaxis: Protonix Assessment/Plan Problem List: (1) Dizziness (2) Vertigo (3) GERD (gastroesophageal reflux disease) (4) Asthma (5) Elevated troponin (6) Uncontrolled hypertension (7) Hx of arteriovenous malformation (AVM) (8) Hyperlipidemia Assessment/Plan 71 year old female admitted with acute episode of dizziness, nausea, no other symptoms. Possible cerebellar stroke, vs positional vertigo, uncontrolled HTN. No evidence of stroke, positional vertigo. -Continue IVF -Orthos negative -Telemetry monitoring -Appreciate cardiology input. Recommends to neurology -Appreciate neuro input, likely vertigo, work up negative for cerebellar stroke -Brain MRI/MRA no acute findings -CUS no stenosis, 2D echo okay EF 50-60% -Continuw with PT for eval and treatment -OOB with assistance. -Antivert PRN -Scopolamine patch -Antiemetics PRN -Will need vestibular therapy as OP -not ready to leave yet, has stopped vomiting is now tolerating meals well. Instructed to move slowly, OOB as much as possible to prevent physical debility. Uncontrolled HTN, now improving -Improved without intervention, continue BB Elevated trop, no cp, elevated creat. nonspecific. -cardiology input appreciated, no evidence of ACS. Asthma, with recent exacerbation, poss. bronchitis, improving. -No need for steroids -Duonebs PRN Hx GIB, GERD and AVMs, with bowel resection -continue with PPI -HH stable. Hyperlipidemia -continue with home meds SCDs for DVT prophylaxis PPI for GI prophylaxis Symptoms improving, will keep one more day OOB with assist continue with PT CM to arrange HHC/PT, pt. and agreeable May f/u with ENT as OP D/W RN D/W Dr. Christie D/W pt, at length D/W CM This patient was seen by myself and Dr. Christie, this note is written on his behalf. Problem Qualifiers (1) GERD (gastroesophageal reflux disease): Qualified Code: K21.9 - Gastroesophageal reflux disease without esophagitis (2) Asthma: Qualified Code: J45.20 - Mild intermittent asthma without complication (3) Hyperlipidemia: Qualified Code: E78.5 - Hyperlipidemia, unspecified hyperlipidemia type Katia Pendleton Oct 06, 2016 13:28
[2016-10-07] VITALS: BP 156/73; PULSE 62; RESP 18; TEMP 98.6; O2SAT 96
[2016-10-07 04:00] VITALS: BP 142/68; PULSE 62; RESP 17; TEMP 98.9; O2SAT 96
[2016-10-07] MEDS: SODIUM CHLOR 0.9% 1000 ML INJ 1,000 ML IV SCH (06:00)
[2016-10-07] MEDS: MECLIZINE HCL 25 MG TAB PO SCH ×2 (06:30→12:49)
[2016-10-07 08:00] VITALS: BP 130/70; PULSE 65; RESP 20; TEMP 98.6; O2SAT 94
[2016-10-07 08:15] VITALS: PULSE 61
[2016-10-07] MEDS: OLOPATADINE HCL 0.1% OPHT SOLN 5 ML BTL EACH EYE SCH (09:00)
[2016-10-07] MEDS: SODIUM CHLORIDE 0.9% FLUSH 5 ML FLUSH FLUSH SCH (09:00)
[2016-10-07] MEDS: PRAVASTATIN SOD 10 MG TAB PO SCH (09:23)
[2016-10-07] MEDS: PANTOPRAZOLE SOD 20 MG DELAYED RELEASE TAB PO SCH (09:24)
[2016-10-07] MEDS: CITALOPRAM HYDROBROMIDE 20 MG TAB PO SCH (09:24)
[2016-10-07] MEDS: CETIRIZINE HCL 10 MG TAB PO SCH (09:24)
[2016-10-07] MEDS: METOPROLOL TARTRATE 50 MG TAB PO SCH (09:24)
[2016-10-07] MEDS: BUDESONIDE-FORMOTEROL 160/4.5 MCG INHALER INH SCH (09:29)
--- NOTE | 2016-10-07 10:32 | HHI.PR ---
Subjective History of Present Illness still dizzy but not as bad less nausea eating ok No headache No CP or SOB No fever or chills wants bedside commode & walker for home offers no other c/o Vitals/Results Intake & Output 10/06/16 10/06/16 10/07/16 15:00 23:00 07:00 Intake Total 1224 ml 480 ml 100 ml Output Total 300 ml Balance 924 ml 480 ml 100 ml Intake Oral 480 ml 480 ml 100 ml IV Total 744 ml Output Urine Total 300 ml # Voids 3 2 2 # Bowel Movements 0 0 0 Vital Signs Vital Signs Date Time Temp Pulse Resp B/P Pulse Ox O2 Delivery O2 Flow Rate FiO2 10/07/16 08:00 98.6 65 20 130/70 94 10/07/16 04:00 98.9 62 17 142/68 96 10/07/16 00:00 98.6 62 18 156/73 96 10/06/16 20:10 Room Air 10/06/16 20:00 98.8 62 17 163/77 96 10/06/16 20:00 60 10/06/16 18:37 95 21 10/06/16 14:26 95 21 10/06/16 12:00 98.1 64 20 167/77 93 CBC/BMP: 10/06/16 0800 10/06/16 0800 Physical Exam General General Appearance: Well Developed, Well Nourished, No Acute Distress, Comfortable Eyes Eye Exam: Pupils Equal, Sclera White, Extraocular Movement Intact Ears & Nose Ears & Nose Exam: Nasal Mucosa [place] Throat Throat Exam: Oral Mucosa [place] & Moist Neck Neck Exam: Neck Supple, Trachea Midline Pulmonary Resp Exam: Clear Bilaterally Cardiology CV Exam: Regular, Normal Sinus Rhythm, Good Perfusion Gastrointestinal/Abdomen GI Exam: Soft, Non-Tender, Bowel Sounds Present, Non-Distended Integumentary Skin Exam: Warm, Dry Extremeties Extremities Exam: No Edema, Pedal Pulses Palpable Neurologic Neuro Exam: Alert, Awake, Oriented, Speech Clear, Moving All Extremities Psychiatric Psych Exam: Appropriate Responses VTE Prophylaxis VTE Prophylaxis Device: SCDs PUD Prophylasis PUD Prophylaxis: Protonix Assessment/Plan Problem List: (1) Dizziness (2) Vertigo (3) GERD (gastroesophageal reflux disease) (4) Asthma (5) Elevated troponin (6) Uncontrolled hypertension (7) Hx of arteriovenous malformation (AVM) (8) Hyperlipidemia Assessment/Plan Severe Vertigo d/t BPPV s/p uncontrolled HTN. -d/c IVF -Orthos negative -d/c Telemetry -Appreciate neuro input, likely vertigo, work up negative for cerebellar stroke -Brain MRI/MRA no acute findings -CUS no stenosis, 2D echo okay EF 50-60% -Continuw with PT for eval and treatment -OOB with assistance. -Antivert PRN -Scopolamine patch -Antiemetics PRN -Will need vestibular therapy as OP - Uncontrolled HTN, now better continue BB Elevated trop, no cp, elevated creat. nonspecific. -cardiology input appreciated, no evidence of ACS. Asthma, with recent exacerbation, poss. bronchitis, improving. -No need for steroids -Duonebs PRN Hx GIB, GERD and AVMs, with bowel resection -continue with PPI -HH stable. Hyperlipidemia -continue with home meds SCDs for DVT prophylaxis PPI for GI prophylaxis medically stable for d/c d/c HOME today w C see Orders f/u pcp Problem Qualifiers (1) GERD (gastroesophageal reflux disease): Qualified Code: K21.9 - Gastroesophageal reflux disease without esophagitis (2) Asthma: Qualified Code: J45.20 - Mild intermittent asthma without complication (3) Hyperlipidemia: Qualified Code: E78.5 - Hyperlipidemia, unspecified hyperlipidemia type Nicol Christie MD Oct 07, 2016 10:32 Problem Qualifiers (1) GERD (gastroesophageal reflux disease): Qualified Code: K21.9 - Gastroesophageal reflux disease without esophagitis (2) Asthma: Qualified Code: J45.20 - Mild intermittent asthma without complication (3) Hyperlipidemia: Qualified Code: E78.5 - Hyperlipidemia, unspecified hyperlipidemia type Nicol Christie MD Oct 07, 2016 10:32 Qualified Code: J45.20 - Mild intermittent asthma without complication (3) Hyperlipidemia: Qualified Code: E78.5 - Hyperlipidemia, unspecified hyperlipidemia type Nicol Christie MD Oct 07, 2016 10:32
[2016-10-07] MEDS ORDERED: MECL-62 PO (11:55)
[2016-10-07] MEDS ORDERED: MISC-274 (11:55)
[2016-10-07] MEDS ORDERED: Remove Old Patch T-DERMAL (11:55)
[2016-10-07 12:00] VITALS: BP 136/67; PULSE 64; RESP 20; TEMP 98.3; O2SAT 94
[2016-10-07] MEDS ORDERED: REMOVE OLD PATCH T-DERMAL SCH (16:15)
== END 2016-10-07 14:07 | disposition home health service (06) | DRG 149 ==
LOC: NEPE 18:30 → NEDA 21:29 → NEPGCP 23:54 → OBSVTOIN 10-05 08:46 → N04B 10-05 14:07
PROVIDERS: ADMIT Specialist; ATTEND Specialist
DX: R42 Dizziness and giddiness (principal); I10 Essential (primary) hypertension; J45.21 Mild intermittent asthma with (acute) exacerbation; J40 Bronchitis, not specified as acute or chronic; K92.2 Gastrointestinal hemorrhage, unspecified; J06.9 Acute upper respiratory infection, unspecified; R11.2 Nausea with vomiting, unspecified; R74.8 Abnormal levels of other serum enzymes; E78.5 Hyperlipidemia, unspecified; K21.9 Gastro-esophageal reflux disease without esophagitis; E78.00 Pure hypercholesterolemia, unspecified; M19.90 Unspecified osteoarthritis, unspecified site; Q27.33 Arteriovenous malformation of digestive system vessel; K44.9 Diaphragmatic hernia without obstruction or gangrene
CPT/HCPCS: 70450; 70544; 70551; 71010; 80048; 81001; 82550; 83735; 84484; 85025; 85027; 85610; 85730; 87804; 93005; 93306; 93880; C9113; G0378; G8987-GP; G8988-GP; J0780; J2060; J2405; J7030